=== PATIENT | female | born 1950 ===

== ENCOUNTER → 2023-11-04 10:46 | Outpatient (CLI) | payer OTHER, SELFPAY ==
[2023-11-04 12:43] LABS: Cholesterol 185 mg/dL (140-199); HDL Cholesterol 90 mg/dL (40-60); LDL Cholesterol Calculated 79 mg/dL (<100); Triglycerides 80 mg/dL (35-150)
[2023-11-04 12:49] LABS: High Sensitivity CRP - Cardiac 1.3 mg/L (1.0-3.0)
[2023-11-05 15:53] LABS: Creatinine Urine Random 61.8 mg/dL
[2023-11-05 16:08] LABS: Microalbumin Urine Random < 0.6 mg/dL (0-1.6)
== END ==
LOC: LAB 10:46
PROVIDERS: PCP Family Medicine; Referring Provider Family Medicine; Visit Provider Family Medicine
DX: E78.00 Pure hypercholesterolemia, unspecified (principal); I10 Essential (primary) hypertension
CPT/HCPCS: 36415; 80061; 82043; 82570; 86140

== ENCOUNTER → 2024-11-04 11:40 | Outpatient (CLI) | payer OTHER, SELFPAY ==
[2024-11-04 12:53] LABS: Alanine Aminotransferase 25 IU/L (<35); Albumin 4.6 g/dL (3.5-5.0); Albumin Globulin Ratio 1.6 (1.0-2.8); Alkaline Phosphatase 80 U/L (38-126); Aspartate Aminotransferase 38 IU/L (14-36); BUN Creatinine Ratio 19.4 (6-22); Bilirubin Total 0.8 mg/dL (0.2-1.3); Blood Urea Nitrogen 20 mg/dL (7-17); Calcium 9.9 mg/dL (8.4-10.2); Carbon Dioxide 25 mmol/L (22-32); Chloride 104 mmol/L (98-107); Cholesterol 194 mg/dL (140-199); Estimated Glomerular Filt Rate 58 mL/min (>60); Globulin 2.8 g/dL (1.7-4.1); Glucose 102 mg/dL (70-99); HDL Cholesterol 93 mg/dL (40-60); HEMOLYSIS < 15 (0-50); LDL Cholesterol Calculated 83 mg/dL (<100); Potassium 4.7 mmol/L (3.4-5.1); Sodium 138 mmol/L (137-145); Total Protein 7.4 g/dL (6.3-8.2); Triglycerides 90 mg/dL (35-150)
[2024-11-04 13:06] LABS: Free T3, Triiodothyronine Free 4.27 pg/mL (2.77-5.27)
[2024-11-04 13:20] LABS: TSH w/ Reflex to FT4 1.04 uIU/mL (0.47-4.68)
[2024-11-04 15:41] LABS: Vitamin D 25 Hydroxy (D3) 80.7 ng/mL (30.0-100.0)
[2024-11-06 04:08] LABS: CRP, High Sensitivity 1.55 mg/L (0.00-3.00)
== END ==
PROVIDERS: PCP Family Medicine; Referring Provider Family Medicine; Visit Provider Family Medicine
DX: I10 Essential (primary) hypertension (principal); E04.1 Nontoxic single thyroid nodule; E55.9 Vitamin D deficiency, unspecified; E78.00 Pure hypercholesterolemia, unspecified
CPT/HCPCS: 36415; 80053; 80061; 82306; 84443; 84481; 86140

== ENCOUNTER → 2024-11-09 11:39 | Outpatient (CLI) | payer OTHER, SELFPAY ==
--- NOTE | 2024-11-09 11:40 | DI.RAD.S_ITS ---
PROCEDURE: XR DEXA AXIAL W/VFA INDICATIONS: screen osteoporosis COMPARISON: None. FINDINGS: Lumbar Spine: Bone mineral density 1.028 g/cm2, T score -0.5. Left Femoral Neck: Bone mineral density 0.546 g/cm2, T score -2.7. Left Hip: Bone mineral density 0.624 g/cm2, T score -2.6. Fracture Risk Calculation (when applicable): FRAX score not reported due to T-score less than -2.5. (T score greater or equal to -1.0 to: NORMAL) (T score from -1.1 to -2.4: OSTEOPENIA) (T score less than or equal to -2.5: OSTEOPOROSIS) IMPRESSION: By WHO criteria, patient has osteoporosis. Follow-up guidelines as follows: Osteoporosis: Consider a repeat DEXA and Vertebral Fracture Assessment (VFA) exam in 2 years or sooner if medically necessary, to reassess this patient's status. Osteopenia: Consider a repeat DEXA in 2-3 years to reassess this patient's status, or if there is a new clinical indication. Normal: Consider a repeat DEXA in 5 years or sooner, or if there is a new clinical indication. All treatment decisions require clinical judgment and consideration of individual patient factors, including patient preferences, comorbidities, previous drug use, risk factors not captured in the FRAX model (e.g., frailty, falls, vitamin D deficiency, increased bone turnover, interval significant decline in bone density ) and possible under- or over-estimation of fracture risk by FRAX. In addition, the [employer] Guide recommends that FDA-approved medical therapies be considered in postmenopausal women and men age >= 50 years with a: * Hip or vertebral (clinical or morphometric) fracture * T-score of <=-2.5 at the spine or hip * Ten-year fracture probability by FRAX of >= 3% for hip fracture or >=20% for major osteoporotic fracture. Approved by: Luis Brooke M.D. on 11/09/2024 at 22:52
== END ==
PROVIDERS: PCP Family Medicine; Referring Provider Family Medicine; Visit Provider Family Medicine
DX: M81.0 Age-related osteoporosis without current pathological fracture (principal); Z00.00 Encounter for general adult medical examination without abnormal findings; E66.3 Overweight
CPT/HCPCS: 77085